=== PATIENT | male | born 1950 | race Caucasian/White ===

== ENCOUNTER 2021-02-28 09:14 | Outpatient (CLI) | payer MEDICARE, OTHER | END 2021-02-28 09:15 | disposition home or self-care (01) | LOC: CSHWCC 09:14 | PROVIDERS: ATTEND Nurse Practitioner Family | DX: T81.30XS Disruption of wound, unspecified, sequela (principal); T81.89XD Other complications of procedures, not elsewhere classified, subsequent encounter; E11.622 Type 2 diabetes mellitus with other skin ulcer; E03.9 Hypothyroidism, unspecified; E11.40 Type 2 diabetes mellitus with diabetic neuropathy, unspecified; E11.65 Type 2 diabetes mellitus with hyperglycemia; I13.2 Hypertensive heart and chronic kidney disease with heart failure and with stage 5 chronic kidney disease, or end stage renal disease; I50.9 Heart failure, unspecified; E11.22 Type 2 diabetes mellitus with diabetic chronic kidney disease; N18.6 End stage renal disease; J44.9 Chronic obstructive pulmonary disease, unspecified; I25.84 Coronary atherosclerosis due to calcified coronary lesion ==

== ENCOUNTER 2021-04-17 08:38 | Outpatient (CLI) | payer MEDICARE, OTHER | END 2021-04-17 08:39 | disposition home or self-care (01) | LOC: CSHWCC 08:38 | PROVIDERS: ATTEND Nurse Practitioner Family | DX: T81.89XD Other complications of procedures, not elsewhere classified, subsequent encounter (principal); E03.9 Hypothyroidism, unspecified; I13.2 Hypertensive heart and chronic kidney disease with heart failure and with stage 5 chronic kidney disease, or end stage renal disease; E11.22 Type 2 diabetes mellitus with diabetic chronic kidney disease; E11.40 Type 2 diabetes mellitus with diabetic neuropathy, unspecified; E11.65 Type 2 diabetes mellitus with hyperglycemia; E11.622 Type 2 diabetes mellitus with other skin ulcer; I25.84 Coronary atherosclerosis due to calcified coronary lesion; I50.9 Heart failure, unspecified; J44.9 Chronic obstructive pulmonary disease, unspecified; N18.6 End stage renal disease; T81.30XS Disruption of wound, unspecified, sequela | CPT/HCPCS: 97139; G0463; 99213 ==

== ENCOUNTER 2022-01-26 09:28 | Inpatient (IN) | payer MEDICARE, OTHER ==
[2022-01-26] MEDS ORDERED: Ondansetron PF 4 MG/2 ML Vial ONE (09:55)
[2022-01-26] MEDS ORDERED: Morphine 4 MG/ML VIAL ONE (09:55)
[2022-01-26 10:09] LABS: #Basophils 0.1 10x3/uL (0.0-0.2); #Eosinphils 0.2 10x3/uL (0.0-0.5); #Monocytes 1.4 10x3/uL (0.0-1.1); #Neutrophils 9.3 10x3/uL (1.5-8.4); %Basophils 0.4 % (0.0-2.0); %Eosinophils 1.4 % (0.0-6.0); %Lymphocytes 8.8 % (18.0-47.0); %Monocytes 11.3 % (0.0-10.0); %Neutrophils 77.5 % (40.0-75.0); Hemoglobin 10.6 g/dL (13.5-17.5); Mean Corpuscular HGB CONC 32.4 g/dL (32.0-36.0); Mean Corpuscular Hemoglobin 32.1 pg (27.0-33.0); Mean Corpuscular Volume 99.1 fl (81.2-95.1); Mean Platelet Volume 10.8 fl (7.4-10.4); Platelet Count 184 10x3/uL (150-450); RBC Distribution Width 15.9 % (11.5-14.5)
[2022-01-26 10:26] LABS: ALT (SGPT) 10 U/L (8-55); AST (SGOT) 15 U/L (5-34); Albumin 3.5 g/dL (3.4-4.8); Alkaline Phosphatase 149 U/L (40-110); Anion Gap 21 mmol/L (10-20); BUN (Urea Nitrogen) 41 mg/dL (8.4-25.7); Bilirubin, Total 1.1 mg/dL (0.2-1.2); Calc. Creatinine Clearance 0 mL/min (70-130); Calcium 8.5 mg/dL (7.8-10.44); Carbon Dioxide 25 mmol/L (23-31); Chloride 96 mmol/L (98-107); Globulin 3.1 g/dL (2.4-3.5); Glucose 124 mg/dL (83-110); Lipase 7 U/L (8-78); Potassium 4.6 mmol/L (3.5-5.1); Protein, Total 6.6 g/dL (5.8-8.1); Sodium 137 mmol/L (136-145)
[2022-01-26] MEDS ORDERED: Benzonatate 100 MG CAP PO PRN (11:59)
[2022-01-26] MEDS ORDERED: Calcium Carbonate 500 MG ChewTAB PO PRN (11:59)
[2022-01-26] MEDS ORDERED: Dextrose 50% Abboject 50 ML SYRINGE SLOW IVP PRN (12:01)
[2022-01-26] MEDS ORDERED: Ondansetron PF 4 MG/2 ML Vial IVP PRN (12:01)
[2022-01-26] MEDS ORDERED: Dextrose 5% in Water 1,000 ML IV PRN (12:01)
[2022-01-26] MEDS ORDERED: HumaLOG 300 UNITS/3 ML VIAL SC PRN (12:04)
[2022-01-26] MEDS ORDERED: Piperacillin/Tazobactam 4.5 GM VIAL ONE (12:08)
[2022-01-26] MEDS ORDERED: Albuterol Sulfate 2.5 mg/3 ml Neb NEB PRN (12:48)
[2022-01-26] MEDS ORDERED: Heparin 10,000 UNITS/ 10 ML VIAL SLOW IVP PRN (13:47)
[2022-01-26] MEDS ORDERED: EPOETIN ALFA-EPBX (ESRD) 4,000 UNIT/ML VIAL IVP SCH (14:00)
[2022-01-26 14:49] VITALS: BMI 23.1
[2022-01-26] MEDS ORDERED: Vancomycin 1.5 GRAM/300 ML BAG 1.5 GM in Premix Bag 1 BAG IVPB SCH ×2 (15:15→18:15)
[2022-01-26] MEDS ORDERED: Vancomycin Diaylsis Sliding Scale (Wt 71-99) FS SCH (17:00)
[2022-01-26] MEDS: Morphine 2 MG/ML VIAL SLOW IVP PRN ×2 (18:18→21:35)
[2022-01-26] MEDS: Piperacillin/Tazobactam 3.375 GM in Sodium Chloride 0.9% 100 ML IVPB SCH (18:18)
[2022-01-26] MEDS: Calcium Carbonate 500 MG ChewTAB PO SCH (18:19)
[2022-01-26] MEDS: Carvedilol 12.5 MG TAB PO SCH (18:19)
[2022-01-26] MEDS: Heparin 5,000 UNITS/ML VIAL SC SCH ×2 (18:30→20:37)
[2022-01-26] MEDS: Mometasone 100 MCG/PUFF (1 INHALER) INH SCH (19:25)
[2022-01-26] MEDS: traMADol HCl 50 MG TAB PO PRN (20:37)
[2022-01-26] MEDS: Mirtazapine 15 MG TAB PO SCH (20:38)
[2022-01-26] MEDS: Gabapentin 100 MG CAP PO SCH (20:44)
[2022-01-26] MEDS: glipiZIDE 5 MG TAB PO SCH (20:45)
[2022-01-26] MEDS: Brimonidine Tartrate 0.2% Ophth Soln 5 ml Bottle EA EYE SCH (21:50)
[2022-01-27] MEDS: Piperacillin/Tazobactam 3.375 GM in Sodium Chloride 0.9% 100 ML IVPB SCH ×2 (03:26→16:57)
[2022-01-27] MEDS: Morphine 2 MG/ML VIAL SLOW IVP PRN ×3 (05:06→22:01)
[2022-01-27] MEDS: Levothyroxine Sodium 100 MCG TAB PO SCH (05:08)
[2022-01-27] MEDS: Acetaminophen 325 MG TAB PO PRN (05:08)
[2022-01-27 05:58] LABS: #Eosinphils 0.2 10x3/uL (0.0-0.5); #Monocytes 1.6 10x3/uL (0.0-1.1); #Neutrophils 9.5 10x3/uL (1.5-8.4); %Basophils 0.3 % (0.0-2.0); %Eosinophils 1.2 % (0.0-6.0); %Lymphocytes 11.6 % (18.0-47.0); %Monocytes 12.3 % (0.0-10.0); Hemoglobin 11.1 g/dL (13.5-17.5); Mean Corpuscular HGB CONC 31.5 g/dL (32.0-36.0); Mean Corpuscular Hemoglobin 31.8 pg (27.0-33.0); Mean Corpuscular Volume 100.9 fl (81.2-95.1); Mean Platelet Volume 11.7 fl (7.4-10.4); Platelet Count 156 10x3/uL (150-450); RBC Distribution Width 16.1 % (11.5-14.5); Red Blood Cell (RBC) Count 3.49 10x6/uL (4.32-5.72); White Blood Cell (WBC) Count 12.9 10x3/uL (3.5-10.5)
[2022-01-27] MEDS: traMADol HCl 50 MG TAB PO PRN ×2 (06:05→20:50)
[2022-01-27 06:06] LABS: ALT (SGPT) 11 U/L (8-55); AST (SGOT) 11 U/L (5-34); Albumin 3.4 g/dL (3.4-4.8); Alkaline Phosphatase 141 U/L (40-110); Anion Gap 21 mmol/L (10-20); BUN (Urea Nitrogen) 20 mg/dL (8.4-25.7); Bilirubin, Total 1.3 mg/dL (0.2-1.2); Calc. Creatinine Clearance 16 mL/min (70-130); Calcium 8.8 mg/dL (7.8-10.44); Carbon Dioxide 24 mmol/L (23-31); Chloride 97 mmol/L (98-107); Glucose 67 mg/dL (83-110); Protein, Total 6.4 g/dL (5.8-8.1); Sodium 138 mmol/L (136-145)
[2022-01-27] MEDS: Mometasone 100 MCG/PUFF (1 INHALER) INH SCH ×2 (06:57→20:25)
[2022-01-27] MEDS: Heparin 5,000 UNITS/ML VIAL SC SCH ×3 (08:29→20:54)
[2022-01-27] MEDS: glipiZIDE 5 MG TAB PO SCH ×2 (08:30→20:52)
[2022-01-27] MEDS: Aspirin Chewable 81 MG TAB PO SCH (08:31)
[2022-01-27] MEDS: Famotidine/PF 20 mg/2ml Vial SLOW IVP SCH (08:31)
[2022-01-27] MEDS: Gabapentin 100 MG CAP PO SCH ×2 (08:32→20:52)
[2022-01-27] MEDS: Carvedilol 12.5 MG TAB PO SCH ×2 (08:49→19:52)
[2022-01-27] MEDS: hydrALAZINE 25 MG TAB PO SCH (08:49)
[2022-01-27] MEDS: Calcium Carbonate 500 MG ChewTAB PO SCH ×2 (08:50→18:43)
[2022-01-27] MEDS: Brimonidine Tartrate 0.2% Ophth Soln 5 ml Bottle EA EYE SCH ×2 (08:52→20:53)
[2022-01-27] MEDS ORDERED: Non-Formulary Medication 1 EACH (Fluticasone/Umeclidin/Vilanter [Trelegy Ellipta 100-62.5- IH SCH (09:00)
[2022-01-27] MEDS ORDERED: Ketorolac Tromethamine 30 MG/ML VIAL IVP SCH (18:15)
[2022-01-27 18:29] LABS: Iron 43 ug/dL (65-175); Iron Binding Capacity, Total 251 mcg/dL (261-462)
[2022-01-27 18:40] LABS: INR-International Normal Ratio 1.2; Prothrombin Time 13.2 sec (9.5-12.1)
[2022-01-27] MEDS: Lactated Ringer's 1,000 ML IV SCH (18:42)
[2022-01-27] MEDS: Mirtazapine 15 MG TAB PO SCH (20:53)
[2022-01-28 03:29] LABS: Hep A IgM AB Non-Reactive (NonReactive); Hep A IgM S/CO 0.55 S/CO (0-0.79); Hep C IgG Ab Non-Reactive (NonReactive); Hepatitis B Core IgM Abs Non-Reactive (NonReactive)
[2022-01-28 03:57] LABS: #Basophils 0.1 10x3/uL (0.0-0.2); #Eosinphils 0.2 10x3/uL (0.0-0.5); #Monocytes 1.3 10x3/uL (0.0-1.1); #Neutrophils 9.3 10x3/uL (1.5-8.4); %Basophils 0.5 % (0.0-2.0); %Eosinophils 1.2 % (0.0-6.0); %Monocytes 10.9 % (0.0-10.0); %Neutrophils 75.8 % (40.0-75.0); Hemoglobin 10.5 g/dL (13.5-17.5); Mean Corpuscular HGB CONC 31.6 g/dL (32.0-36.0); Mean Corpuscular Hemoglobin 31.5 pg (27.0-33.0); Mean Corpuscular Volume 99.7 fl (81.2-95.1); Mean Platelet Volume 11.4 fl (7.4-10.4); Platelet Count 132 10x3/uL (150-450); RBC Distribution Width 16.1 % (11.5-14.5); Red Blood Cell (RBC) Count 3.33 10x6/uL (4.32-5.72); White Blood Cell (WBC) Count 12.3 10x3/uL (3.5-10.5)
[2022-01-28] MEDS: Piperacillin/Tazobactam 3.375 GM in Sodium Chloride 0.9% 100 ML IVPB SCH ×2 (04:08→15:57)
[2022-01-28 04:13] LABS: Anion Gap 20 mmol/L (10-20); BUN (Urea Nitrogen) 28 mg/dL (8.4-25.7); Calc. Creatinine Clearance 12 mL/min (70-130); Calcium 8.6 mg/dL (7.8-10.44); Carbon Dioxide 23 mmol/L (23-31); Chloride 94 mmol/L (98-107); Glucose 127 mg/dL (83-110); Potassium 4.2 mmol/L (3.5-5.1); Sodium 133 mmol/L (136-145)
[2022-01-28 04:32] LABS: HBSAB Concentration 34.99 mIU/mL; Hep B Surf AB Reactive (NonReactive)
[2022-01-28 05:45] LABS: HBSAg Index 0.25 S/CO (0-0.99); Hep B Surf Ag Non-Reactive S/CO (NonReactive)
[2022-01-28] MEDS: Lactated Ringer's 1,000 ML IV SCH ×2 (06:12→15:51)
[2022-01-28] MEDS: Levothyroxine Sodium 100 MCG TAB PO SCH (06:12)
[2022-01-28] MEDS: Mometasone 100 MCG/PUFF (1 INHALER) INH SCH ×2 (07:15→20:32)
[2022-01-28] MEDS: Brimonidine Tartrate 0.2% Ophth Soln 5 ml Bottle EA EYE SCH ×2 (09:07→21:27)
[2022-01-28] MEDS: Famotidine/PF 20 mg/2ml Vial SLOW IVP SCH (09:07)
[2022-01-28] MEDS: Heparin 5,000 UNITS/ML VIAL SC SCH ×3 (09:07→21:28)
[2022-01-28] MEDS: Gabapentin 100 MG CAP PO SCH ×2 (09:07→21:32)
[2022-01-28] MEDS: Aspirin Chewable 81 MG TAB PO SCH (09:08)
[2022-01-28] MEDS: glipiZIDE 5 MG TAB PO SCH ×2 (09:09→21:32)
[2022-01-28] MEDS ORDERED: EPOETIN ALFA-EPBX (ESRD) 3,000 UNIT/ML VIAL IVP SCH (11:00)
[2022-01-28] MEDS ORDERED: EPOETIN ALFA-EPBX (ESRD) 2,000 UNIT/ML VIAL IVP SCH (11:00)
[2022-01-28] MEDS: Morphine 2 MG/ML VIAL SLOW IVP PRN (15:44)
[2022-01-28] MEDS: hydrALAZINE 25 MG TAB PO SCH (15:50)
[2022-01-28] MEDS: Carvedilol 12.5 MG TAB PO SCH ×2 (15:51→18:11)
[2022-01-28] MEDS: Calcium Carbonate 500 MG ChewTAB PO SCH ×2 (15:52→18:11)
[2022-01-28] MEDS: oxyCODONE 5 MG TAB PO PRN (18:12)
[2022-01-28] MEDS: Mirtazapine 15 MG TAB PO SCH (21:31)
[2022-01-28] MEDS: traMADol HCl 50 MG TAB PO PRN (21:31)
[2022-01-29] MEDS: Piperacillin/Tazobactam 3.375 GM in Sodium Chloride 0.9% 100 ML IVPB SCH ×2 (03:22→17:00)
[2022-01-29] MEDS: oxyCODONE 5 MG TAB PO PRN ×2 (03:22→09:48)
[2022-01-29] MEDS: Lactated Ringer's 1,000 ML IV SCH ×2 (03:31→21:04)
[2022-01-29 03:52] LABS: Iron 46 ug/dL (65-175); Iron Binding Capacity, Total 226 mcg/dL (261-462)
[2022-01-29] MEDS: Levothyroxine Sodium 100 MCG TAB PO SCH (05:48)
[2022-01-29 07:42] LABS: SARS-CoV-2 NAA Rapid Test Not Detected (NotDetected)
[2022-01-29] MEDS: Calcium Carbonate 500 MG ChewTAB PO SCH ×2 (08:09→17:06)
[2022-01-29] MEDS: Brimonidine Tartrate 0.2% Ophth Soln 5 ml Bottle EA EYE SCH ×2 (08:09→20:54)
[2022-01-29] MEDS: Aspirin Chewable 81 MG TAB PO SCH (08:10)
[2022-01-29] MEDS: hydrALAZINE 25 MG TAB PO SCH (08:10)
[2022-01-29] MEDS: glipiZIDE 5 MG TAB PO SCH ×2 (08:10→20:52)
[2022-01-29] MEDS: Carvedilol 12.5 MG TAB PO SCH ×2 (08:11→17:05)
[2022-01-29] MEDS: Gabapentin 100 MG CAP PO SCH ×2 (08:12→20:52)
[2022-01-29] MEDS: Heparin 5,000 UNITS/ML VIAL SC SCH ×3 (08:12→20:50)
[2022-01-29] MEDS: Famotidine/PF 20 mg/2ml Vial SLOW IVP SCH (08:12)
[2022-01-29] MEDS: Mometasone 100 MCG/PUFF (1 INHALER) INH SCH ×2 (13:04→19:45)
[2022-01-29] MEDS ORDERED: Piperacillin/Tazobactam 3.375 GM VIAL ONE ×2 (15:26)
[2022-01-29] MEDS: Morphine 2 MG/ML VIAL SLOW IVP PRN (15:27)
[2022-01-29] MEDS: Acetaminophen 325 MG TAB PO PRN (17:50)
[2022-01-29] MEDS ORDERED: Morphine 2 MG/ML VIAL SLOW IVP PRN (18:02)
[2022-01-29] MEDS: Mirtazapine 15 MG TAB PO SCH (20:53)
[2022-01-30] MEDS: Piperacillin/Tazobactam 3.375 GM in Sodium Chloride 0.9% 100 ML IVPB SCH ×2 (04:21→22:49)
[2022-01-30] MEDS: Levothyroxine Sodium 100 MCG TAB PO SCH (05:27)
[2022-01-30 05:52] LABS: #Eosinphils 0.1 10x3/uL (0.0-0.5); #Neutrophils 5.7 10x3/uL (1.5-8.4); %Basophils 0.5 % (0.0-2.0); %Eosinophils 1.5 % (0.0-6.0); %Lymphocytes 12.2 % (18.0-47.0); %Monocytes 12.7 % (0.0-10.0); %Neutrophils 72.2 % (40.0-75.0); Hemoglobin 10.3 g/dL (13.5-17.5); Mean Corpuscular HGB CONC 32.7 g/dL (32.0-36.0); Mean Corpuscular Hemoglobin 31.8 pg (27.0-33.0); Mean Corpuscular Volume 97.2 fl (81.2-95.1); Mean Platelet Volume 11.8 fl (7.4-10.4); Platelet Count 135 10x3/uL (150-450); RBC Distribution Width 15.8 % (11.5-14.5); Red Blood Cell (RBC) Count 3.24 10x6/uL (4.32-5.72)
[2022-01-30 05:59] LABS: Anion Gap 20 mmol/L (10-20); BUN (Urea Nitrogen) 21 mg/dL (8.4-25.7); Calc. Creatinine Clearance 14 mL/min (70-130); Calcium 8.4 mg/dL (7.8-10.44); Carbon Dioxide 21 mmol/L (23-31); Chloride 94 mmol/L (98-107); Glucose 82 mg/dL (83-110); Potassium 4.3 mmol/L (3.5-5.1); Sodium 131 mmol/L (136-145)
[2022-01-30] MEDS: Mometasone 100 MCG/PUFF (1 INHALER) INH SCH ×2 (06:50→19:55)
[2022-01-30] MEDS: Famotidine/PF 20 mg/2ml Vial SLOW IVP SCH (08:00)
[2022-01-30] MEDS: Aspirin Chewable 81 MG TAB PO SCH (08:00)
[2022-01-30] MEDS: Brimonidine Tartrate 0.2% Ophth Soln 5 ml Bottle EA EYE SCH ×2 (08:00→20:49)
[2022-01-30] MEDS: Calcium Carbonate 500 MG ChewTAB PO SCH ×3 (08:00→20:21)
[2022-01-30] MEDS: glipiZIDE 5 MG TAB PO SCH ×2 (09:00→20:45)
[2022-01-30] MEDS: Heparin 5,000 UNITS/ML VIAL SC SCH ×2 (09:00→22:00)
[2022-01-30] MEDS: hydrALAZINE 25 MG TAB PO SCH (09:00)
[2022-01-30] MEDS: Gabapentin 100 MG CAP PO SCH ×2 (09:00→20:43)
[2022-01-30] MEDS ORDERED: Dicyclomine 10 MG CAP PO SCH (20:00)
[2022-01-30] MEDS: Carvedilol 12.5 MG TAB PO SCH ×2 (20:20)
[2022-01-30] MEDS: Acetaminophen 325 MG TAB PO PRN (20:44)
[2022-01-30] MEDS: Mirtazapine 15 MG TAB PO SCH (21:59)
[2022-01-31] MEDS: Lactated Ringer's 1,000 ML IV SCH (00:08)
[2022-01-31] MEDS ORDERED: Dicyclomine 10 MG CAP PO SCH (01:30)
[2022-01-31 05:19] LABS: Hemoglobin 10.1 g/dL (13.5-17.5); Mean Corpuscular HGB CONC 32.8 g/dL (32.0-36.0); Mean Corpuscular Hemoglobin 32.2 pg (27.0-33.0); Mean Corpuscular Volume 98.1 fl (81.2-95.1); Mean Platelet Volume 11.5 fl (7.4-10.4); RBC Distribution Width 15.9 % (11.5-14.5); Red Blood Cell (RBC) Count 3.14 10x6/uL (4.32-5.72); White Blood Cell (WBC) Count 9.6 10x3/uL (3.5-10.5)
[2022-01-31 05:20] LABS: Platelet Count 148 10x3/uL (150-450)
[2022-01-31 05:21] LABS: MDiff Complete? YES
[2022-01-31 05:23] LABS: Anion Gap 18 mmol/L (10-20); BUN (Urea Nitrogen) 12 mg/dL (8.4-25.7); Calc. Creatinine Clearance 19 mL/min (70-130); Calcium 8.7 mg/dL (7.8-10.44); Carbon Dioxide 27 mmol/L (23-31); Chloride 94 mmol/L (98-107); Glucose 159 mg/dL (83-110); Potassium 4.3 mmol/L (3.5-5.1); Sodium 135 mmol/L (136-145)
[2022-01-31 05:25] LABS: ALT (SGPT) 16 U/L (8-55); AST (SGOT) 22 U/L (5-34); Albumin 3.1 g/dL (3.4-4.8); Alkaline Phosphatase 186 U/L (40-110); Bilirubin, Total 1.3 mg/dL (0.2-1.2); Protein, Total 6.1 g/dL (5.8-8.1)
[2022-01-31] MEDS: Mometasone 100 MCG/PUFF (1 INHALER) INH SCH (05:36)
[2022-01-31 05:52] LABS: Band 7 % (5-11); Eosinophils 2 % (0-10); Lymphocytes 14 % (21-51); Monocytes 16 % (0-10); Neutrophil 61 % (42-75)
[2022-01-31 05:54] LABS: Anisocytosis SLIGHT = 6-15 cells (100X) (0-5/hpf); Platelet Morphology Comment Appears Decreased
[2022-01-31] MEDS: Levothyroxine Sodium 100 MCG TAB PO SCH (06:33)
[2022-01-31 08:13] VITALS: BP 118/71; TEMP 98
[2022-01-31] MEDS: Calcium Carbonate 500 MG ChewTAB PO SCH (09:12)
[2022-01-31] MEDS: Gabapentin 100 MG CAP PO SCH (09:12)
[2022-01-31] MEDS: glipiZIDE 5 MG TAB PO SCH (09:13)
[2022-01-31] MEDS: Famotidine/PF 20 mg/2ml Vial SLOW IVP SCH (09:13)
[2022-01-31] MEDS: Aspirin Chewable 81 MG TAB PO SCH (09:13)
[2022-01-31] MEDS: Carvedilol 12.5 MG TAB PO SCH (09:13)
[2022-01-31] MEDS: Brimonidine Tartrate 0.2% Ophth Soln 5 ml Bottle EA EYE SCH (09:15)
[2022-01-31] MEDS: Heparin 5,000 UNITS/ML VIAL SC SCH (10:40)
[2022-01-31] MEDS: hydrALAZINE 25 MG TAB PO SCH (10:40)
[2022-01-31] MEDS ORDERED: Piperacillin/Tazobactam 3.375 GM in Sodium Chloride 0.9% 100 ML IVPB SCH (11:00)
[2022-01-31 15:37] LABS: Smooth Muscle Total ABS 10 Units (0-19)
[2022-02-02 12:20] LABS: EliA Vaculitis New Method **** NEW METHOD ****; Mitochondrial Ab 1.2 U/mL (<4 Negative)
== END 2022-01-31 10:50 | disposition home or self-care (01) | DRG 393 ==
LOC: CSHERS 09:28 → CSHTELE 12:18
PROVIDERS: ADMIT Internal Medicine Nephrology; ATTEND Internal Medicine
PROC: 5A1D70Z Performance of Urinary Filtration, Intermittent, Less than 6 Hours Per Day (ICD-10-PCS; principal; 2022-01-30)
DX: K55.9 Vascular disorder of intestine, unspecified (principal); N18.6 End stage renal disease; G92.8 Other toxic encephalopathy; I13.2 Hypertensive heart and chronic kidney disease with heart failure and with stage 5 chronic kidney disease, or end stage renal disease; E11.22 Type 2 diabetes mellitus with diabetic chronic kidney disease; I25.10 Atherosclerotic heart disease of native coronary artery without angina pectoris; D63.1 Anemia in chronic kidney disease; F17.210 Nicotine dependence, cigarettes, uncomplicated; E88.09 Other disorders of plasma-protein metabolism, not elsewhere classified; K74.60 Unspecified cirrhosis of liver; I50.9 Heart failure, unspecified; E03.9 Hypothyroidism, unspecified; T40.2X5A Adverse effect of other opioids, initial encounter; J44.9 Chronic obstructive pulmonary disease, unspecified; Z88.5 Allergy status to narcotic agent; Z88.0 Allergy status to penicillin; Z88.8 Allergy status to other drugs, medicaments and biological substances; Z79.82 Long term (current) use of aspirin; Z79.02 Long term (current) use of antithrombotics/antiplatelets; Z99.2 Dependence on renal dialysis; Z95.5 Presence of coronary angioplasty implant and graft; Z86.73 Personal history of transient ischemic attack (TIA), and cerebral infarction without residual deficits; Z95.1 Presence of aortocoronary bypass graft; Z89.411 Acquired absence of right great toe; Z71.6 Tobacco abuse counseling
CPT/HCPCS: 36415; 36416; 74176; 76705; 80048; 80053; 80074; 80076; 81256; 82105; 82140; 82728; 83516; 83540; 83550; 83605; 83630; 83690; 85025; 85610; 86015; 86706; 86708; 86850; 86900; 86901; 87040; 87045; 87046; 87324; 87328; 87329; 87427; 87449; 90935; 93005; 93010; 94664; 94760; 96374; 96375; G0257; J1644; J1815; J1885; J2270; J2405; J2543; J3370; J3490; J7120; J7620; Q5105; S0028; U0002

== ENCOUNTER 2022-03-03 14:16 | Inpatient (IN) | payer MEDICARE, OTHER ==
[2022-03-03] MEDS ORDERED: Morphine 4 MG/ML VIAL ONE (14:45)
[2022-03-03] MEDS ORDERED: Ondansetron PF 4 MG/2 ML Vial ONE (14:46)
[2022-03-03 14:52] LABS: #Eosinphils 0.2 10x3/uL (0.0-0.5); #Monocytes 1.5 10x3/uL (0.0-1.1); #Neutrophils 8.9 10x3/uL (1.5-8.4); %Basophils 0.2 % (0.0-2.0); %Eosinophils 1.3 % (0.0-6.0); %Lymphocytes 10.1 % (18.0-47.0); %Neutrophils 74.7 % (40.0-75.0); Hemoglobin 12.4 g/dL (13.5-17.5); Mean Corpuscular HGB CONC 32.8 g/dL (32.0-36.0); Mean Corpuscular Hemoglobin 32.7 pg (27.0-33.0); Mean Corpuscular Volume 99.7 fl (81.2-95.1); Mean Platelet Volume 12.3 fl (7.4-10.4); Platelet Count 155 10x3/uL (150-450); RBC Distribution Width 22.8 % (11.5-14.5); Red Blood Cell (RBC) Count 3.79 10x6/uL (4.32-5.72); White Blood Cell (WBC) Count 11.9 10x3/uL (3.5-10.5)
[2022-03-03 15:09] LABS: ALT (SGPT) 37 U/L (8-55); AST (SGOT) 46 U/L (5-34); Albumin 3.3 g/dL (3.4-4.8); Alkaline Phosphatase 200 U/L (40-110); Anion Gap 26 mmol/L (10-20); BUN (Urea Nitrogen) 66 mg/dL (8.4-25.7); Bilirubin, Total 3.3 mg/dL (0.2-1.2); Calc. Creatinine Clearance 0 mL/min (70-130); Calcium 7.8 mg/dL (7.8-10.44); Carbon Dioxide 25 mmol/L (23-31); Chloride 97 mmol/L (98-107); Globulin 3.1 g/dL (2.4-3.5); Glucose 86 mg/dL (83-110); Lipase 6 U/L (8-78); Potassium 5.8 mmol/L (3.5-5.1); Protein, Total 6.4 g/dL (5.8-8.1); Sodium 142 mmol/L (136-145)
[2022-03-03 15:25] LABS: Anisocytosis MARKED = >30 cells (100X) (0-5/hpf); Macrocytosis SLIGHT = 6-15 cells (100X) (0-5/hpf); Microcytosis SLIGHT = 6-15 cells (100X) (0-5/hpf)
[2022-03-03 15:33] LABS: CKMB 3.6 ng/mL (0-6.6)
[2022-03-03] MEDS ORDERED: Ondansetron PF 4 MG/2 ML Vial IVP PRN (18:07)
[2022-03-03] MEDS ORDERED: Senokot S 8.6-50 MG TAB PO PRN (18:07)
[2022-03-03] MEDS ORDERED: Ondansetron ODT 4 MG TAB PO PRN (18:07)
[2022-03-03] MEDS ORDERED: Nitroglycerin 0.4 MG TAB (25 Tab Bottle) SL PRN (18:10)
[2022-03-03] MEDS ORDERED: Dextrose 5% in Water 1,000 ML IV PRN ×2 (18:11→20:06)
[2022-03-03] MEDS ORDERED: Insulin Regular 300 UNITS/3 ML VIAL SC PRN (18:11)
[2022-03-03] MEDS ORDERED: Dextrose 50% Abboject 50 ML SYRINGE SLOW IVP PRN ×2 (18:11→20:06)
[2022-03-03 18:12] LABS: Troponin I 0.241 ng/mL (< 0.028)
[2022-03-03] MEDS ORDERED: Heparin 10,000 UNITS/ 10 ML VIAL SLOW IVP PRN (19:32)
[2022-03-03] MEDS ORDERED: Calcium Carbonate 500 MG ChewTAB PO PRN (20:07)
[2022-03-03] MEDS ORDERED: Guaifenesin DM 100-10/5 ML UDCUP PO PRN (20:07)
[2022-03-03] MEDS ORDERED: Brimonidine Tartrate 0.2% Ophth Soln 5 ml Bottle EA EYE SCH (21:00)
[2022-03-03 21:40] LABS: CKMB 3.5 ng/mL (0-6.6)
[2022-03-03] MEDS: hydrALAZINE 25 MG TAB PO SCH (22:38)
[2022-03-03] MEDS: Famotidine 20 MG TAB PO SCH (22:40)
[2022-03-03] MEDS: Rosuvastatin 20 MG TAB PO SCH (22:40)
[2022-03-03] MEDS: Mirtazapine 15 MG TAB PO SCH (22:40)
[2022-03-03] MEDS: Gabapentin 100 MG CAP PO SCH (22:40)
[2022-03-03] MEDS: Heparin 5,000 UNITS/ML VIAL SC SCH (22:42)
[2022-03-03] MEDS: glipiZIDE 5 MG TAB PO SCH (22:43)
[2022-03-04 04:34] LABS: #Eosinphils 0.2 10x3/uL (0.0-0.5); #Monocytes 1.4 10x3/uL (0.0-1.1); #Neutrophils 8.1 10x3/uL (1.5-8.4); %Basophils 0.2 % (0.0-2.0); %Eosinophils 1.7 % (0.0-6.0); %Lymphocytes 9.8 % (18.0-47.0); %Monocytes 12.6 % (0.0-10.0); Hemoglobin 11.5 g/dL (13.5-17.5); Mean Corpuscular HGB CONC 33.3 g/dL (32.0-36.0); Mean Corpuscular Hemoglobin 32.6 pg (27.0-33.0); Mean Corpuscular Volume 97.7 fl (81.2-95.1); Mean Platelet Volume 12.1 fl (7.4-10.4); Red Blood Cell (RBC) Count 3.53 10x6/uL (4.32-5.72); White Blood Cell (WBC) Count 10.8 10x3/uL (3.5-10.5)
[2022-03-04 04:35] LABS: Platelet Count 137 10x3/uL (150-450)
[2022-03-04 04:49] LABS: Anisocytosis SLIGHT = 6-15 cells (100X) (0-5/hpf); Ovalocytes SLIGHT = 2-5 cells (100X) (0-1/hpf)
[2022-03-04 04:50] LABS: Platelet Morphology Comment Appears Adequate; Polychromasia SLIGHT = 2-3 cells (100X) (0-2/hpf)
[2022-03-04 04:53] LABS: Anion Gap 19 mmol/L (10-20); BUN (Urea Nitrogen) 41 mg/dL (8.4-25.7); Calc. Creatinine Clearance 14 mL/min (70-130); Calcium 7.8 mg/dL (7.8-10.44); Carbon Dioxide 26 mmol/L (23-31); Cardiac Risk 5.8 (Less than 4.5); Chloride 100 mmol/L (98-107); Cholesterol 75 mg/dl (< 200 Desired); Glucose 73 mg/dL (83-110); HDL Cholesterol 13 mg/dL (>60 Neg Risk); LDL Cholesterol, Calculated 49 mg/dL; Sodium 140 mmol/L (136-145); Triglycerides 65 mg/dL (Less than 150)
[2022-03-04 05:10] LABS: Free T4 (Free Thyroxine) 1.05 ng/dL (0.70-1.48); Thyroid Stimulating Hormone 5.424 uIU/mL (0.35-4.94)
[2022-03-04 05:12] LABS: CKMB 2.2 ng/mL (0-6.6)
[2022-03-04] MEDS: Mometasone 100 MCG/PUFF (1 INHALER) INH SCH ×2 (07:11→19:25)
[2022-03-04 07:59] LABS: SARS-CoV-2 NAA Rapid Test Not Detected (NotDetected)
[2022-03-04] MEDS ORDERED: Aspirin Chewable 81 MG TAB PO SCH (09:00)
[2022-03-04] MEDS ORDERED: Enoxaparin Sodium 30 MG/0.3 ML SYRINGE SC SCH (09:00)
[2022-03-04 13:25] LABS: Hemoglobin A1c 6.3 % (4.0-6.0)
[2022-03-04] MEDS: Heparin 5,000 UNITS/ML VIAL SC SCH ×3 (16:50→21:29)
[2022-03-04] MEDS: Levothyroxine Sodium 75 MCG TAB PO SCH (17:00)
[2022-03-04] MEDS: Acetaminophen 325 MG TAB PO PRN (17:00)
[2022-03-04] MEDS: Gabapentin 100 MG CAP PO SCH ×2 (17:01→21:28)
[2022-03-04] MEDS: Multivit, Therapeutic 1 TAB PO SCH (17:01)
[2022-03-04] MEDS: Carvedilol 6.25 MG TAB PO SCH ×2 (17:02→18:23)
[2022-03-04] MEDS: hydrALAZINE 25 MG TAB PO SCH ×2 (17:02→21:29)
[2022-03-04] MEDS: Aspirin Chewable 81 MG TAB PO SCH (17:02)
[2022-03-04] MEDS: glipiZIDE 5 MG TAB PO SCH ×2 (17:02→21:27)
[2022-03-04] MEDS: Clopidogrel Bisulfate 75 MG TAB PO SCH (17:02)
[2022-03-04] MEDS: Rosuvastatin 20 MG TAB PO SCH (21:27)
[2022-03-04] MEDS: Famotidine 20 MG TAB PO SCH (21:27)
[2022-03-04] MEDS: Mirtazapine 15 MG TAB PO SCH (21:27)
[2022-03-05] MEDS: Mometasone 100 MCG/PUFF (1 INHALER) INH SCH ×2 (07:00→18:32)
[2022-03-05] MEDS: Levothyroxine Sodium 75 MCG TAB PO SCH (10:18)
[2022-03-05] MEDS: Heparin 5,000 UNITS/ML VIAL SC SCH ×3 (10:18→21:19)
[2022-03-05] MEDS: Gabapentin 100 MG CAP PO SCH ×2 (10:19→21:17)
[2022-03-05] MEDS: Acetaminophen 325 MG TAB PO PRN ×2 (10:19→18:22)
[2022-03-05] MEDS: Multivit, Therapeutic 1 TAB PO SCH (10:19)
[2022-03-05] MEDS: Clopidogrel Bisulfate 75 MG TAB PO SCH (10:20)
[2022-03-05] MEDS: Carvedilol 6.25 MG TAB PO SCH ×2 (10:20→18:22)
[2022-03-05] MEDS: glipiZIDE 5 MG TAB PO SCH ×2 (10:20→21:17)
[2022-03-05] MEDS: hydrALAZINE 25 MG TAB PO SCH ×2 (10:20→23:59)
[2022-03-05] MEDS: Aspirin Chewable 81 MG TAB PO SCH (10:20)
[2022-03-05] MEDS ORDERED: Brimonidine Tartrate 0.2% Ophth Soln 5 ml Bottle EA EYE SCH (10:45)
[2022-03-05] MEDS: Mirtazapine 15 MG TAB PO SCH (21:10)
[2022-03-05] MEDS: Famotidine 20 MG TAB PO SCH (21:10)
[2022-03-05] MEDS: Rosuvastatin 20 MG TAB PO SCH (21:17)
[2022-03-05] MEDS: Brimonidine Tartrate 0.2% Ophth Soln 5 ml Bottle EA EYE SCH (21:20)
[2022-03-05] MEDS: HumaLOG 300 UNITS/3 ML VIAL SC PRN (23:51)
[2022-03-06 05:02] LABS: #Eosinphils 0.3 10x3/uL (0.0-0.5); #Monocytes 1.4 10x3/uL (0.0-1.1); #Neutrophils 7.4 10x3/uL (1.5-8.4); %Basophils 0.3 % (0.0-2.0); %Eosinophils 2.5 % (0.0-6.0); %Lymphocytes 10.9 % (18.0-47.0); %Monocytes 13.8 % (0.0-10.0); %Neutrophils 71.7 % (40.0-75.0); Mean Corpuscular Hemoglobin 32.7 pg (27.0-33.0); Mean Platelet Volume 12.5 fl (7.4-10.4); Platelet Count 108 10x3/uL (150-450); RBC Distribution Width 22.2 % (11.5-14.5); Red Blood Cell (RBC) Count 3.06 10x6/uL (4.32-5.72); White Blood Cell (WBC) Count 10.3 10x3/uL (3.5-10.5)
[2022-03-06 05:23] LABS: Anion Gap 19 mmol/L (10-20); BUN (Urea Nitrogen) 56 mg/dL (8.4-25.7); Calc. Creatinine Clearance 13 mL/min (70-130); Calcium 7.5 mg/dL (7.8-10.44); Carbon Dioxide 26 mmol/L (23-31); Chloride 100 mmol/L (98-107); Glucose 126 mg/dL (83-110); Potassium 5.2 mmol/L (3.5-5.1); Sodium 140 mmol/L (136-145)
[2022-03-06 06:03] LABS: Anisocytosis SLIGHT = 6-15 cells (100X) (0-5/hpf); Macrocytosis SLIGHT = 6-15 cells (100X) (0-5/hpf)
[2022-03-06 06:04] LABS: Ovalocytes SLIGHT = 2-5 cells (100X) (0-1/hpf); Platelet Morphology Comment Appears Decreased
[2022-03-06] MEDS: Mometasone 100 MCG/PUFF (1 INHALER) INH SCH ×2 (06:40→18:56)
[2022-03-06] MEDS: Brimonidine Tartrate 0.2% Ophth Soln 5 ml Bottle EA EYE SCH ×2 (08:00→21:26)
[2022-03-06] MEDS: Levothyroxine Sodium 75 MCG TAB PO SCH (08:52)
[2022-03-06] MEDS: Aspirin Chewable 81 MG TAB PO SCH (08:52)
[2022-03-06] MEDS: Gabapentin 100 MG CAP PO SCH ×2 (08:52→21:20)
[2022-03-06] MEDS: Multivit, Therapeutic 1 TAB PO SCH (08:52)
[2022-03-06] MEDS: Heparin 5,000 UNITS/ML VIAL SC SCH ×2 (08:52→16:53)
[2022-03-06] MEDS: glipiZIDE 5 MG TAB PO SCH ×2 (08:53→21:20)
[2022-03-06] MEDS: Clopidogrel Bisulfate 75 MG TAB PO SCH (09:09)
[2022-03-06] MEDS: hydrALAZINE 25 MG TAB PO SCH (09:13)
[2022-03-06] MEDS: Carvedilol 6.25 MG TAB PO SCH ×2 (09:13→16:56)
[2022-03-06 10:59] LABS: Hep B Surf Ag Non-Reactive S/CO (NonReactive)
[2022-03-06 11:44] LABS: HBSAg Index 0.19 S/CO (0-0.99)
[2022-03-06 13:43] LABS: Hep B Core Total Ab Non-Reactive (NonReactive); Hep B Core Total Index 0.06 S/CO (0-0.79); Hep C IgG Ab Non-Reactive (NonReactive); Hep C Index 0.14 S/CO (0-0.79)
[2022-03-06 13:51] LABS: HBSAB Concentration 14.86 mIU/mL; Hep B Surf AB Reactive (NonReactive)
[2022-03-06] MEDS: Acetaminophen 325 MG TAB PO PRN (16:59)
[2022-03-06] MEDS: Apixaban 2.5 MG TAB PO SCH (21:20)
[2022-03-06] MEDS: Famotidine 20 MG TAB PO SCH (21:20)
[2022-03-06] MEDS: Mirtazapine 15 MG TAB PO SCH (21:20)
[2022-03-06] MEDS: Rosuvastatin 20 MG TAB PO SCH (21:20)
[2022-03-07 04:25] LABS: Hemoglobin 10.8 g/dL (13.5-17.5); Mean Corpuscular HGB CONC 31.4 g/dL (32.0-36.0); Mean Corpuscular Hemoglobin 31.9 pg (27.0-33.0); Mean Corpuscular Volume 101.5 fl (81.2-95.1); Mean Platelet Volume 12.2 fl (7.4-10.4); Platelet Count 111 10x3/uL (150-450); RBC Distribution Width 22.3 % (11.5-14.5); Red Blood Cell (RBC) Count 3.39 10x6/uL (4.32-5.72); White Blood Cell (WBC) Count 11.2 10x3/uL (3.5-10.5)
[2022-03-07 04:45] LABS: Anion Gap 18 mmol/L (10-20); BUN (Urea Nitrogen) 39 mg/dL (8.4-25.7); Calc. Creatinine Clearance 19 mL/min (70-130); Calcium 7.9 mg/dL (7.8-10.44); Carbon Dioxide 27 mmol/L (23-31); Chloride 98 mmol/L (98-107); Glucose 80 mg/dL (83-110); Potassium 5.1 mmol/L (3.5-5.1); Sodium 138 mmol/L (136-145)
[2022-03-07 05:08] LABS: MDiff Complete? YES
[2022-03-07 05:10] LABS: Macrocytosis SLIGHT = 6-15 cells (100X) (0-5/hpf); Ovalocytes SLIGHT = 2-5 cells (100X) (0-1/hpf)
[2022-03-07 05:11] LABS: Platelet Morphology Comment Appears Decreased
[2022-03-07 05:13] LABS: Eosinophils 2 % (0-10); Lymphocytes 10 % (21-51); Monocytes 15 % (0-10); Neutrophil 73 % (42-75)
[2022-03-07] MEDS: Mometasone 100 MCG/PUFF (1 INHALER) INH SCH ×2 (07:20→18:55)
[2022-03-07] MEDS: Brimonidine Tartrate 0.2% Ophth Soln 5 ml Bottle EA EYE SCH ×2 (08:38→21:26)
[2022-03-07] MEDS: Levothyroxine Sodium 75 MCG TAB PO SCH (08:39)
[2022-03-07] MEDS: Aspirin Chewable 81 MG TAB PO SCH (08:39)
[2022-03-07] MEDS: Multivit, Therapeutic 1 TAB PO SCH (08:39)
[2022-03-07] MEDS: Clopidogrel Bisulfate 75 MG TAB PO SCH (08:39)
[2022-03-07] MEDS: Gabapentin 100 MG CAP PO SCH ×2 (08:40→21:25)
[2022-03-07] MEDS: Acetaminophen 325 MG TAB PO PRN (08:40)
[2022-03-07] MEDS: Apixaban 2.5 MG TAB PO SCH ×2 (08:40→21:25)
[2022-03-07] MEDS: Carvedilol 6.25 MG TAB PO SCH ×2 (08:40→16:13)
[2022-03-07] MEDS: glipiZIDE 5 MG TAB PO SCH (08:41)
[2022-03-07] MEDS: Rosuvastatin 20 MG TAB PO SCH (21:25)
[2022-03-07] MEDS: Mirtazapine 15 MG TAB PO SCH (21:25)
[2022-03-07] MEDS: Famotidine 20 MG TAB PO SCH (21:25)
[2022-03-08] MEDS: Acetaminophen 325 MG TAB PO PRN (03:09)
[2022-03-08] MEDS: Mometasone 100 MCG/PUFF (1 INHALER) INH SCH ×2 (07:40→22:20)
[2022-03-08] MEDS: Gabapentin 100 MG CAP PO SCH ×2 (09:46→22:05)
[2022-03-08] MEDS: Carvedilol 6.25 MG TAB PO SCH ×2 (09:47→17:20)
[2022-03-08] MEDS: Multivit, Therapeutic 1 TAB PO SCH (09:47)
[2022-03-08] MEDS: Levothyroxine Sodium 75 MCG TAB PO SCH (09:47)
[2022-03-08] MEDS: Clopidogrel Bisulfate 75 MG TAB PO SCH (09:48)
[2022-03-08] MEDS: Apixaban 2.5 MG TAB PO SCH ×2 (09:48→21:51)
[2022-03-08] MEDS: Aspirin Chewable 81 MG TAB PO SCH (09:48)
[2022-03-08] MEDS: Brimonidine Tartrate 0.2% Ophth Soln 5 ml Bottle EA EYE SCH ×2 (09:48→21:56)
[2022-03-08] MEDS: HumaLOG 300 UNITS/3 ML VIAL SC PRN (20:18)
[2022-03-08] MEDS: Rosuvastatin 20 MG TAB PO SCH (21:52)
[2022-03-08] MEDS: Mirtazapine 15 MG TAB PO SCH (21:53)
[2022-03-08] MEDS: Famotidine 20 MG TAB PO SCH (22:06)
[2022-03-09] MEDS: Acetaminophen 325 MG TAB PO PRN ×3 (03:23→17:21)
[2022-03-09 04:23] LABS: Anion Gap 21 mmol/L (10-20); BUN (Urea Nitrogen) 66 mg/dL (8.4-25.7); Calc. Creatinine Clearance 13 mL/min (70-130); Carbon Dioxide 23 mmol/L (23-31); Chloride 98 mmol/L (98-107); Glucose 78 mg/dL (83-110); Potassium 5.7 mmol/L (3.5-5.1); Sodium 136 mmol/L (136-145)
[2022-03-09] MEDS: Mometasone 100 MCG/PUFF (1 INHALER) INH SCH ×2 (07:10→19:50)
[2022-03-09 08:30] LABS: Hemoglobin 9.9 g/dL (13.5-17.5); Platelet Count 146 10x3/uL (150-450)
[2022-03-09] MEDS: Brimonidine Tartrate 0.2% Ophth Soln 5 ml Bottle EA EYE SCH ×2 (09:16→20:57)
[2022-03-09] MEDS: Levothyroxine Sodium 75 MCG TAB PO SCH (09:16)
[2022-03-09] MEDS: Apixaban 2.5 MG TAB PO SCH ×2 (15:12→20:50)
[2022-03-09] MEDS: Aspirin Chewable 81 MG TAB PO SCH (15:12)
[2022-03-09] MEDS: Multivit, Therapeutic 1 TAB PO SCH (15:12)
[2022-03-09] MEDS: Gabapentin 100 MG CAP PO SCH ×2 (15:12→20:50)
[2022-03-09] MEDS: Carvedilol 6.25 MG TAB PO SCH ×2 (15:12→17:21)
[2022-03-09] MEDS: Clopidogrel Bisulfate 75 MG TAB PO SCH (18:28)
[2022-03-09] MEDS: Mirtazapine 15 MG TAB PO SCH (20:51)
[2022-03-09] MEDS: Rosuvastatin 20 MG TAB PO SCH (20:53)
[2022-03-09] MEDS: Famotidine 20 MG TAB PO SCH (20:56)
[2022-03-10 04:24] LABS: Anion Gap 19 mmol/L (10-20); BUN (Urea Nitrogen) 36 mg/dL (8.4-25.7); Calc. Creatinine Clearance 19 mL/min (70-130); Carbon Dioxide 26 mmol/L (23-31); Chloride 95 mmol/L (98-107); Glucose 83 mg/dL (83-110); Potassium 4.4 mmol/L (3.5-5.1); Sodium 136 mmol/L (136-145)
[2022-03-10] MEDS: Mometasone 100 MCG/PUFF (1 INHALER) INH SCH (06:45)
[2022-03-10] MEDS: Carvedilol 6.25 MG TAB PO SCH ×2 (09:46→15:55)
[2022-03-10] MEDS: Aspirin Chewable 81 MG TAB PO SCH (09:46)
[2022-03-10] MEDS: Levothyroxine Sodium 75 MCG TAB PO SCH (09:47)
[2022-03-10] MEDS: Multivit, Therapeutic 1 TAB PO SCH (09:47)
[2022-03-10] MEDS: Gabapentin 100 MG CAP PO SCH (09:48)
[2022-03-10] MEDS: Apixaban 2.5 MG TAB PO SCH (09:49)
[2022-03-10] MEDS: Brimonidine Tartrate 0.2% Ophth Soln 5 ml Bottle EA EYE SCH (09:49)
[2022-03-10 14:51] VITALS: BMI 24.9
[2022-03-10 18:05] VITALS: BP 106/55; TEMP 99.3
== END 2022-03-10 18:24 | disposition home health service (06) | DRG 291 ==
LOC: CSHERS 14:16 → CSHTELE 21:02 → OBSVTOIN 21:03 → CSHTELE 22:59
PROVIDERS: ADMIT Emergency Medicine; ATTEND Family Medicine
PROC: 5A1D70Z Performance of Urinary Filtration, Intermittent, Less than 6 Hours Per Day (ICD-10-PCS; 2022-03-03)
PROC: 5A1D70Z Performance of Urinary Filtration, Intermittent, Less than 6 Hours Per Day (ICD-10-PCS; 2022-03-04)
PROC: 5A1D70Z Performance of Urinary Filtration, Intermittent, Less than 6 Hours Per Day (ICD-10-PCS; 2022-03-06)
PROC: 5A1D70Z Performance of Urinary Filtration, Intermittent, Less than 6 Hours Per Day (ICD-10-PCS; principal; 2022-03-09)
DX: I13.2 Hypertensive heart and chronic kidney disease with heart failure and with stage 5 chronic kidney disease, or end stage renal disease (principal); N18.6 End stage renal disease; I50.43 Acute on chronic combined systolic (congestive) and diastolic (congestive) heart failure; I25.810 Atherosclerosis of coronary artery bypass graft(s) without angina pectoris; I48.92 Unspecified atrial flutter; E78.5 Hyperlipidemia, unspecified; E11.40 Type 2 diabetes mellitus with diabetic neuropathy, unspecified; E11.22 Type 2 diabetes mellitus with diabetic chronic kidney disease; J44.9 Chronic obstructive pulmonary disease, unspecified; D63.1 Anemia in chronic kidney disease; I25.10 Atherosclerotic heart disease of native coronary artery without angina pectoris; E03.9 Hypothyroidism, unspecified; K74.60 Unspecified cirrhosis of liver; F17.210 Nicotine dependence, cigarettes, uncomplicated; Z96.641 Presence of right artificial hip joint; E87.5 Hyperkalemia; E11.51 Type 2 diabetes mellitus with diabetic peripheral angiopathy without gangrene; I25.5 Ischemic cardiomyopathy; I48.0 Paroxysmal atrial fibrillation; R77.8 Other specified abnormalities of plasma proteins; Z20.822 Contact with and (suspected) exposure to COVID-19; Z66 Do not resuscitate; F32.A Depression, unspecified; F41.9 Anxiety disorder, unspecified; Z99.2 Dependence on renal dialysis; Z95.1 Presence of aortocoronary bypass graft; Z95.5 Presence of coronary angioplasty implant and graft; Z88.5 Allergy status to narcotic agent; Z89.411 Acquired absence of right great toe; Z88.0 Allergy status to penicillin; Z79.82 Long term (current) use of aspirin; Z79.899 Other long term (current) drug therapy; Z86.73 Personal history of transient ischemic attack (TIA), and cerebral infarction without residual deficits; Z79.51 Long term (current) use of inhaled steroids
CPT/HCPCS: 36415; 36416; 70450; 71045; 71275; 80048; 80053; 80061; 82553; 83036; 83690; 84439; 84443; 84484; 85014; 85018; 85025; 85049; 86704; 87340; 90935; 93005; 93010; 93306; 94664; 96374; 96375; G0257; G0378; J1644; J2270; J2405; J7620; U0002

== ENCOUNTER 2022-04-29 15:48 | Emergency (ER) | payer MEDICARE ==
[2022-04-29 16:41] LABS: Hemoglobin 9.8 g/dL (13.5-17.5); Mean Corpuscular HGB CONC 31.2 g/dL (32.0-36.0); Mean Corpuscular Hemoglobin 33.3 pg (27.0-33.0); Mean Corpuscular Volume 106.8 fl (81.2-95.1); Mean Platelet Volume 11.2 fl (7.4-10.4); Platelet Count 201 10x3/uL (150-450); Red Blood Cell (RBC) Count 2.94 10x6/uL (4.32-5.72); White Blood Cell (WBC) Count 9.6 10x3/uL (3.5-10.5)
[2022-04-29 16:50] LABS: ALT (SGPT) 10 U/L (8-55); AST (SGOT) 25 U/L (5-34); Alkaline Phosphatase 150 U/L (40-110); Anion Gap 16 mmol/L (10-20); BUN (Urea Nitrogen) 28 mg/dL (8.4-25.7); Bilirubin, Total 1.4 mg/dL (0.2-1.2); Calc. Creatinine Clearance 0 mL/min (70-130); Calcium 8.3 mg/dL (7.8-10.44); Carbon Dioxide 29 mmol/L (23-31); Chloride 98 mmol/L (98-107); Estimated GFR 12; Globulin 3.1 g/dL (2.4-3.5); Glucose 127 mg/dL (83-110); Potassium 4.1 mmol/L (3.5-5.1); Protein, Total 6.1 g/dL (5.8-8.1); Sodium 139 mmol/L (136-145)
[2022-04-29 17:10] LABS: Eosinophils 3 % (0-10); Lymphocytes 36 % (21-51); Monocytes 9 % (0-10); Neutrophil 52 % (42-75)
[2022-04-29 17:11] LABS: Anisocytosis SLIGHT = 6-15 cells (100X) (0-5/hpf); MDiff Complete? YES; Macrocytosis SLIGHT = 6-15 cells (100X) (0-5/hpf); Platelet Morphology Comment Appears Adequate
[2022-04-29 17:17] LABS: CKMB 2.1 ng/mL (0-6.6)
[2022-04-29] MEDS ORDERED: Ondansetron PF 4 MG/2 ML Vial ONE (17:17)
== END 2022-04-29 17:30 | disposition home or self-care (01) ==
LOC: CSHERS 15:48
DX: R11.2 Nausea with vomiting, unspecified (principal); E11.9 Type 2 diabetes mellitus without complications; Z79.4 Long term (current) use of insulin; E78.5 Hyperlipidemia, unspecified; I13.2 Hypertensive heart and chronic kidney disease with heart failure and with stage 5 chronic kidney disease, or end stage renal disease; I50.9 Heart failure, unspecified; N18.6 End stage renal disease; Z99.2 Dependence on renal dialysis; J44.9 Chronic obstructive pulmonary disease, unspecified; Z86.73 Personal history of transient ischemic attack (TIA), and cerebral infarction without residual deficits
CPT/HCPCS: 71045; 80053; 82553; 84484; 85025; 93005; 96374; J2405

== ENCOUNTER 2022-05-13 20:28 | Emergency (ER) | payer MEDICARE ==
[2022-05-13] MEDS ORDERED: Pantoprazole 40 MG VIAL ONE (20:55)
[2022-05-13 22:13] LABS: #Monocytes 1.8 10x3/uL (0.0-1.1); #Neutrophils 10.4 10x3/uL (1.5-8.4); %Basophils 0.3 % (0.0-2.0); %Eosinophils 0.1 % (0.0-6.0); %Lymphocytes 13.3 % (18.0-47.0); %Monocytes 12.6 % (0.0-10.0); %Neutrophils 73.2 % (40.0-75.0); Hemoglobin 11.5 g/dL (13.5-17.5); Mean Corpuscular HGB CONC 30.9 g/dL (32.0-36.0); Mean Corpuscular Volume 106.9 fl (81.2-95.1); Mean Platelet Volume 11.8 fl (7.4-10.4); Platelet Count 131 10x3/uL (150-450); RBC Distribution Width 19.5 % (11.5-14.5); Red Blood Cell (RBC) Count 3.48 10x6/uL (4.32-5.72); White Blood Cell (WBC) Count 14.2 10x3/uL (3.5-10.5)
[2022-05-13] MEDS ORDERED: Morphine 4 MG/ML VIAL ONE (22:57)
[2022-05-13] MEDS ORDERED: Ondansetron PF 4 MG/2 ML Vial ONE (22:57)
[2022-05-13] MEDS ORDERED: cefTRIAXone\\ROCEPHIN 1 GM VIAL ONE (22:58)
[2022-05-13 23:16] LABS: INR-International Normal Ratio 1.3; PTT 25.7 sec (22.0-33.0); Prothrombin Time 13.5 sec (9.5-12.1)
[2022-05-13 23:18] LABS: ALT (SGPT) 22 U/L (8-55); AST (SGOT) 28 U/L (5-34); Albumin 3.3 g/dL (3.4-4.8); Alkaline Phosphatase 201 U/L (40-110); Anion Gap 22 mmol/L (10-20); BUN (Urea Nitrogen) 47 mg/dL (8.4-25.7); Bilirubin, Total 1.6 mg/dL (0.2-1.2); Calc. Creatinine Clearance 0 mL/min (70-130); Calcium 9.3 mg/dL (7.8-10.44); Carbon Dioxide 31 mmol/L (23-31); Chloride 95 mmol/L (98-107); Estimated GFR 11; Globulin 3.5 g/dL (2.4-3.5); Glucose 163 mg/dL (83-110); Potassium 5.1 mmol/L (3.5-5.1); Protein, Total 6.8 g/dL (5.8-8.1); Sodium 143 mmol/L (136-145)
[2022-05-14 00:12] LABS: SARS-CoV-2 NAA Rapid Test Not Detected (NotDetected)
== END 2022-05-14 00:45 | disposition short-term general hospital (02) ==
LOC: CSHERS 20:28
DX: R11.2 Nausea with vomiting, unspecified (principal); R74.02 Elevation of levels of lactic acid dehydrogenase [LDH]; D72.829 Elevated white blood cell count, unspecified; I13.2 Hypertensive heart and chronic kidney disease with heart failure and with stage 5 chronic kidney disease, or end stage renal disease; E11.22 Type 2 diabetes mellitus with diabetic chronic kidney disease; N18.6 End stage renal disease; I50.9 Heart failure, unspecified; J44.9 Chronic obstructive pulmonary disease, unspecified; Z86.73 Personal history of transient ischemic attack (TIA), and cerebral infarction without residual deficits; Z99.2 Dependence on renal dialysis; Z87.891 Personal history of nicotine dependence; Z79.899 Other long term (current) drug therapy; Z79.82 Long term (current) use of aspirin; Z79.01 Long term (current) use of anticoagulants; Z20.822 Contact with and (suspected) exposure to COVID-19
CPT/HCPCS: 80053; 83605; 85025; 85610; 85730; 86850; 86900; 86901; 87040; 93005; 96365; 96375; 99285; U0002; 36415; C9113; J0696; J2270; J2405